=== PATIENT | female | born 1950 | race Caucasian/White ===

== ENCOUNTER 2019-07-07 03:37 | Inpatient (IN) ==
[2019-07-07] MEDS ORDERED: Nitroglycerin 0.4 MG TAB.SUBL SL PRN (03:46)
[2019-07-07] MEDS ORDERED: Ondansetron 4 MG/2 ML VIAL IVP STA (03:56)
[2019-07-07] MEDS ORDERED: *HR* FentaNYL (PF) 100 MCG/2 ML VIAL IVP ONE ×2 (04:24→05:24)
[2019-07-07 04:39] LABS: Basophils # 0.1 K/mcL (0.0-0.2); Basophils % 0.6 %; Eosinophils # 0.1 K/mcL (0.0-0.6); Eosinophils % 0.9 %; Hematocrit 44.2 % (35.3-44.9); Hemoglobin 14.4 g/dL (11.5-15.4); Immature Granulocytes % 0.5 % (0-4); Lymphocytes # 2.1 K/mcL (0.6-4.6); Mean Corpuscular HGB Conc 32.6 g/dL (31.6-35.5); Mean Corpuscular Hemoglobin 30.3 pg (28.0-33.3); Mean Corpuscular Volume 92.9 fL (83.0-100.0); Mean Platelet Volume 11.7 fL (9.4-12.4); Monocytes # 0.9 K/mcL (0.0-1.3); Platelet Count 250 K/mcL (140-400); Red Blood Count 4.76 M/mcL (3.82-4.97); Red Cell Distribution Width 12.7 % (11.5-14.5); White Blood Count 13.3 K/mcL (4.3-11.1)
[2019-07-07 05:06] LABS: BUN/Creatinine Ratio 25 (6-26); Blood Urea Nitrogen 19 mg/dL (8-23); Calcium 9.3 mg/dL (8.6-10.3); Carbon Dioxide 26 mEq/L (23-29); Chloride 101 mEq/L (98-107); Glucose 170 mg/dL (70-105); Magnesium 1.9 mg/dL (1.6-2.6); Osmolality,Calculated 288 (280-300); Sodium 136 mEq/L (136-145); Troponin I 0.11 ng/mL (< 0.04); eGFR For African Americans > 60 (> 60); eGFR For Non-African Americans > 60 (> 60)
[2019-07-07] MEDS ORDERED: *HR* Heparin 5,000 UNIT/ML VIAL IVP PRN ×2 (05:07)
[2019-07-07] MEDS ORDERED: *HR* Heparin 5,000 UNIT/ML VIAL IVP ONE (05:07)
[2019-07-07 05:17] LABS: Thyroid Stimulating Hormone 3.337 mcIU/mL (0.340-5.600)
[2019-07-07 05:47] LABS: Heparin anti-factor XA UFH < 0.04 IU/mL (0.30-0.70); Prothrombin Time 11.6 Seconds (9.4-12.1)
[2019-07-07] MEDS: Heparin 25,000 UNIT/250 ML D5W 25,000 UNIT/250 ML IV.SOLN IVC SCH (05:54)
[2019-07-07] MEDS ORDERED: Naloxone 0.4 MG/ML INJ IVP PRN (07:22)
[2019-07-08 02:59] LABS: Basophils # 0.1 K/mcL (0.0-0.2); Basophils % 0.7 %; Eosinophils # 0.2 K/mcL (0.0-0.6); Eosinophils % 1.6 %; Hematocrit 40.8 % (35.3-44.9); Hemoglobin 13.1 g/dL (11.5-15.4); Immature Granulocytes % 0.5 % (0-4); Lymphocytes # 3.3 K/mcL (0.6-4.6); Lymphocytes % 32.4 %; Mean Corpuscular HGB Conc 32.1 g/dL (31.6-35.5); Mean Corpuscular Hemoglobin 30.3 pg (28.0-33.3); Mean Corpuscular Volume 94.2 fL (83.0-100.0); Mean Platelet Volume 11.6 fL (9.4-12.4); Monocytes # 0.7 K/mcL (0.0-1.3); Monocytes % 6.9 %; Platelet Count 227 K/mcL (140-400); Red Blood Count 4.33 M/mcL (3.82-4.97); Segmented Neutrophils % 57.9 %; White Blood Count 10.3 K/mcL (4.3-11.1)
[2019-07-08 03:22] LABS: BUN/Creatinine Ratio 30 (6-26); Blood Urea Nitrogen 22 mg/dL (8-23); Carbon Dioxide 28 mEq/L (23-29); Chloride 104 mEq/L (98-107); Glucose 155 mg/dL (70-105); Osmolality,Calculated 290 (280-300); Potassium 4.1 mEq/L (3.5-5.1); Sodium 137 mEq/L (136-145); eGFR For African Americans > 60 (> 60); eGFR For Non-African Americans > 60 (> 60)
[2019-07-08] MEDS: Heparin 25,000 UNIT/250 ML D5W 25,000 UNIT/250 ML IV.SOLN IVC SCH (06:29)
[2019-07-08] MEDS ORDERED: Aspirin 81 MG TAB.CHEW PO SCH (10:30)
[2019-07-08 10:54] VITALS: BP 117/67
[2019-07-08 11:28] LABS: Troponin I 0.04 ng/mL (< 0.04)
[2019-07-08] MEDS ORDERED: Metoprolol XL (24 HR) Succ 25 MG TAB.ER.24H PO SCH (18:00)
== END 2019-07-08 14:16 | disposition home or self-care (01) | DRG 281 ==
LOC: EMEROOARM 03:37 → 2ANU 03:37 → SUATTDRO 22:22
PROVIDERS: ADMIT Family Medicine; ATTEND Internal Medicine